=== PATIENT | female | born 1950 | race Two or more races ===

== ENCOUNTER 2020-05-18 09:18 | Inpatient (IN) | payer OTHER ==
[~2020-05-18] VITALS: Ht 165.1 cm; Wt 75.3 kg
[2020-05-18] MEDS ORDERED: JANUMET 50-5001 EACH (09:45)
[2020-05-18] MEDS ORDERED: LISINOPRIL2.5 MG (09:45)
[2020-05-18] MEDS ORDERED: ZESTRIL40 M1 (09:54)
[2020-05-18] MEDS ORDERED: CIDAFLEX TABLE1 EACH (09:55)
[2020-05-18] MEDS ORDERED: ADULT ASPIRIN81 MG (09:55)
[2020-05-18] MEDS ORDERED: DAFLONEX-XL 11300 MG (09:56)
[2020-05-18] MEDS ORDERED: ALLOPURINOL100 MG (09:57)
[2020-05-18] MEDS ORDERED: SIMVASTATIN40 MG (09:58)
[2020-05-18] MEDS ORDERED: VITAMIN D3 COM1 EACH (09:58)
[2020-05-18] MEDS ORDERED: MEMANTINE HCL10 MG (09:59)
== END 2020-05-21 15:18 | disposition home or self-care (01) | DRG 340 ==
LOC: ER 09:18 → SEC-K 16:29 → SURH 16:29 → O/R 20:32 → SURH 22:16
PROVIDERS: ADMIT Surgery; ATTEND Surgery
PROC: BW21ZZZ Computerized Tomography (CT Scan) of Abdomen and Pelvis (ICD-10-PCS; 2020-05-18)
PROC: 0DTJ4ZZ Resection of Appendix, Percutaneous Endoscopic Approach (ICD-10-PCS; principal; 2020-05-18 16:00)
DX: K35.32 Acute appendicitis with perforation, localized peritonitis, and gangrene, without abscess (principal); I10 Essential (primary) hypertension; Z20.828 Contact with and (suspected) exposure to other viral communicable diseases; E87.6 Hypokalemia

== ENCOUNTER 2023-05-30 18:54 | Emergency (ER) | payer OTHER ==
[~2023-05-30] VITALS: Ht 165.1 cm; Wt 70.3 kg
[~2023-05-30 18:54] MED LIST: ADULT ASPIRIN81 MG; ALLOPURINOL100 MG; CIDAFLEX TABLE1 EACH; DAFLONEX-XL 11300 MG; JANUMET 50-5001 EACH; LISINOPRIL2.5 MG; MEMANTINE HCL10 MG; SIMVASTATIN40 MG; VITAMIN D3 COM1 EACH; ZESTRIL40 M1
== END 2023-05-30 21:56 | disposition home or self-care (01) ==
LOC: ER 18:54
DX: J06.9 Acute upper respiratory infection, unspecified (principal); Z20.822 Contact with and (suspected) exposure to COVID-19; I10 Essential (primary) hypertension; E11.9 Type 2 diabetes mellitus without complications; Z79.84 Long term (current) use of oral hypoglycemic drugs

== ENCOUNTER 2024-02-01 05:30 | Day surgery (SDC) | payer OTHER ==
[2024-01-25 10:16] LABS: HEMATOCRIT 33.8 % (36.0-45.00); HEMOGLOBIN 11.4 g/dL (12.0-15.00); MEAN CELL VOLUME 97.9 fL (80.00-100.00); MEAN CORPUSCULAR HEMOGLOBIN 32.8 pg (27.00-32.0); MEAN CORPUSCULAR HGB CONC 33.5 g/dl (32.0-36.0); PLATELET COUNT 199 K/uL (150-450); RED BLOOD COUNT 3.46 M/uL (4.00-6.00); RED CELL DISTRIBUTION WIDTH 15.4 % (11.5-14.5)
[2024-01-25 10:39] LABS: INR 0.98; PARTIAL THROMBOPLASTIN TIME 27.2 SECONDS (22.0-34.0); PROTHROMBIN TIME 10.3 SECONDS (9.0-11.5)
[2024-01-25 10:46] LABS: PH,URINE 5.5 (5.0-8.0); URINE APPEARANCE Clear; URINE BILIRRUBIN Negative (NEGATIVE); URINE BLOOD Negative; URINE COLOR Yellow; URINE GLUCOSE Negative (NEGATIVE); URINE LEUKOCYTE Negative; URINE NITRATE Negative; URINE PROTEIN Negative (NEGATIVE); URINE UROBILINOGEN 0.2 E.U./dl
[2024-01-25 10:47] LABS: URINE BACTERIA 6.2 uL (0.0-1933); URINE WBC 2.4 uL (0.0-23.2)
[2024-01-25 10:48] LABS: URINE RBC 0.9 uL (0.0-20.8)
[2024-01-25 10:57] LABS: COL EPI 84 SECONDS (82-175)
[2024-01-25 11:00] LABS: BILIRUBIN TOTAL 0.66 mg/dL (0.3-1.2); CALCIUM 9.5 mg/dL (8.5-10.1); CREATININE SERUM 1.07 mg/dL (0.55-1.02); GFR 50.26; GLOBULINA 3.9 G/DL (2.4-3.5); POTASSIUM 4.11 mEq/L (3.5-5.1); TOTAL PROTEIN 7.9 gm/dL (6.4-8.2)
[~2024-02-01 05:30] MED LIST changes: +ARICEPT5 MG; +ASA81 MG PO; +DAFLONEX-XL 11300 MG PO; +FEOSOL325 MG; +FOLBIC TABLET1 EACH; +MAXFE CAPLET1 EAC1 PO; +TRAMADOL HCL100 M1 PO
[2024-02-01] MEDS ORDERED: BUPIVACAINE HCL 30 ML VIAL IJ SCH (09:00)
[2024-02-01] MEDS ORDERED: CEFAZOLIN SODIUM 1,000 MG VIAL IV SCH (09:00)
[2024-02-01] MEDS ORDERED: ISOPROPYL ALCOHOL 30 ML OUNCE TOP SCH (09:00)
== END 2024-02-01 17:10 | disposition home or self-care (01) ==
LOC: CIR.AMB 05:30
PROVIDERS: ATTEND Orthopaedic Surgery
DX: S82.852A Displaced trimalleolar fracture of left lower leg, initial encounter for closed fracture (principal); S92.102A Unspecified fracture of left talus, initial encounter for closed fracture; I10 Essential (primary) hypertension
CPT/HCPCS: 27822; 28445; L8699

== ENCOUNTER 2024-03-03 13:35 | Outpatient (CLI) | payer OTHER | END 2024-03-03 13:44 | disposition home or self-care (01) | LOC: RAD 13:35 | PROVIDERS: ATTEND Orthopaedic Surgery | DX: S82.852D Displaced trimalleolar fracture of left lower leg, subsequent encounter for closed fracture with routine healing (principal) ==

== ENCOUNTER 2024-03-29 10:25 | Outpatient (CLI) | payer OTHER | END 2024-03-29 10:27 | disposition home or self-care (01) | LOC: RAD 10:25 | PROVIDERS: ATTEND Orthopaedic Surgery | DX: S82.852D Displaced trimalleolar fracture of left lower leg, subsequent encounter for closed fracture with routine healing (principal) ==

== ENCOUNTER 2024-05-12 15:18 | Outpatient (CLI) | payer OTHER | END 2024-05-12 15:25 | disposition home or self-care (01) | LOC: RAD 15:18 | PROVIDERS: ATTEND Orthopaedic Surgery | DX: S82.852D Displaced trimalleolar fracture of left lower leg, subsequent encounter for closed fracture with routine healing (principal) ==

== ENCOUNTER 2024-06-15 13:33 | Outpatient (CLI) | payer OTHER | END 2024-06-15 13:35 | disposition home or self-care (01) | LOC: NUCLEAR 13:33 | PROVIDERS: ATTEND Orthopaedic Surgery | DX: M81.0 Age-related osteoporosis without current pathological fracture (principal) ==

== ENCOUNTER 2025-02-27 13:51 | Outpatient (CLI) | payer OTHER | END 2025-02-27 13:56 | disposition home or self-care (01) | LOC: RAD 13:51 | PROVIDERS: ATTEND Orthopaedic Surgery | DX: M25.572 Pain in left ankle and joints of left foot (principal) ==

== ENCOUNTER → 2025-06-12 07:24 | Outpatient (CLI) | payer OTHER ==
[2025-06-12 08:39] LABS: BASO % 1.1 % (0.1-1.2); EOS # 0.46 (0.04-0.54); EOS % 5.7 % (0.7-7.0); LYMPH # 1.89 (1.18-3.74); LYMPH % 23.6 % (19.3-53.1); MEAN PLATELET VOLUME 11.50 fl (9.4-12.4); MONO # 0.63 (0.24-0.82); MONO % 7.9 % (4.7-12.5); NEUT # 4.93 (1.56-6.13); NEUT % 61.6 % (34.0-71.1); RED CELL DISTRIBUTION WIDTH 13.3 % (11.6-14.4)
[2025-06-12 09:05] LABS: COL EPI 119 SECONDS (82-175)
[2025-06-12 09:08] LABS: URINE APPEARANCE Clear; URINE BILIRRUBIN Negative (NEGATIVE); URINE BLOOD Negative; URINE COLOR Yellow; URINE GLUCOSE Negative (NEGATIVE); URINE KETONE Negative (NEGATIVE); URINE LEUKOCYTE Trace; URINE NITRATE Negative; URINE PROTEIN Negative (NEGATIVE); URINE UROBILINOGEN 0.2 E.U./dl
[2025-06-12 09:11] LABS: URINE BACTERIA 11.9 uL (0.0-1933); URINE EPITHELIAL CELLS 1.9 uL (0.0-38.8); URINE WBC 15.0 uL (0.0-23.2)
[2025-06-12 09:12] LABS: INR 0.95
[2025-06-12 09:27] LABS: ALT/SGPT 43.0 U/L (12-78); AST/SGOT 35.0 U/L (15-37); BILIRUBIN TOTAL 0.28 mg/dL (0.3-1.2); BUN CREA RATIO 19.0 (7.0-25.0); CREATININE SERUM 1.39 mg/dL (0.55-1.02); GFR 37.06; GLOBULINA 3.4 G/DL (2.4-3.5); GLUCOSE FASTING 94.0 mg/dL (65-100); OSMOLALITY SERUM 288.0 MOSM/KG (275-295)
[2025-06-12 09:41] LABS: URINE CAST 0.14 uL (0.0-1.40); URINE RBC 0.2 uL (0.0-20.8)
== END | disposition home or self-care (01) ==
LOC: EKG 07:24
PROVIDERS: ATTEND Orthopaedic Surgery
DX: D64.9 Anemia, unspecified (principal); E88.89 Other specified metabolic disorders; D68.8 Other specified coagulation defects; N39.0 Urinary tract infection, site not specified; Z22.322 Carrier or suspected carrier of Methicillin resistant Staphylococcus aureus; E11.9 Type 2 diabetes mellitus without complications; I10 Essential (primary) hypertension

== ENCOUNTER 2025-06-12 08:39 | Outpatient (CLI) | payer OTHER | END 2025-06-12 08:42 | disposition home or self-care (01) | LOC: RAD 08:39 | PROVIDERS: ATTEND Orthopaedic Surgery | DX: M25.572 Pain in left ankle and joints of left foot (principal); Z76.89 Persons encountering health services in other specified circumstances ==

== ENCOUNTER 2025-06-26 06:00 | Day surgery (SDC) | payer OTHER ==
[2025-06-22 15:17] VITALS: BP 120/74
[~2025-06-26] VITALS: Ht 165.1 cm; Wt 70.3 kg
[2025-06-26] MEDS ORDERED: CEFAZOLIN SODIUM 1,000 MG VIAL IV ONE (07:45)
[2025-06-26] MEDS ORDERED: ISOPROPYL ALCOHOL 30 ML OUNCE TOP ONE (07:45)
[2025-06-26] MEDS ORDERED: BUPIVACAINE HCL/PF 0.25% 30ML VIAL InF ONE (07:45)
[2025-06-26] MEDS ORDERED: LIDOCAINE HCL 1%/EPINEPHRINE 20ML VIAL IJ ONE (07:45)
== END 2025-06-26 18:00 | disposition home or self-care (01) ==
LOC: CIR.AMB 06:00
PROVIDERS: ATTEND Orthopaedic Surgery
DX: T84.84XD Pain due to internal orthopedic prosthetic devices, implants and grafts, subsequent encounter (principal); M65.872 Other synovitis and tenosynovitis, left ankle and foot